=== PATIENT | female | born 1975 | race Caucasian/White ===

== ENCOUNTER 2018-04-01 08:12 | Observation (INO) | payer OTHER, SELFPAY ==
[2018-04-01 08:13] VITALS: BP 123/75; PULSE 85; RESP 16; TEMP 36.6; O2SAT 100; BMI 19.9
[2018-04-01] MEDS: HYDROmorphone 1 MG/ML Syringe IV (08:32)
[2018-04-01] MEDS: 0.9% Normal Saline 1,000 ML 150 ML IV ×3 (08:32→23:16)
[2018-04-01] MEDS: Ondansetron 4 MG/2 ML Vial IV (08:32)
[2018-04-01 08:35] VITALS: BP 107/75; PULSE 83; RESP 16; O2SAT 100
[2018-04-01 08:35] LABS: Absolute Lymphocyte Count 2.38 X10^3/ul (0.83-4.51); Absolute Neutrophil Count 6.4 X10^3/uL (2.0-7.7); Basophil# 0.02 X10^3/uL; Basophil% 0.2 % (0-1); Eosinophil# 0.09 X10^3/uL; Eosinophils% 0.9 % (0-5); Hematocrit 39.8 % (37-47); Hemoglobin 13.4 g/dl (12.0-15.0); Lymphocyte # 2.38 X10^3/ul (4.0); Lymphocyte % 24.4 % (19-41); Mean Corp Hgb Conc 33.7 g/gl (32-36); Mean Corpuscular Hgb 30.2 pg (27.0-32.0); Mean Corpuscular Volume 89.8 fL (81-99); Mean Platelet Vol. 9.1 fl (6.2-12.0); Monocyte# 0.83 X10^3/uL; Monocyte% 8.5 % (0-10); Neutrophil # 6.35 X10^3/uL (2.7-7.7); Neutrophil % 65.1 % (47-70); Platelet Count 245 K/mm3 (150-450); RBC Distribution Width CV 12.8 % (11.6-14.6); RBC Distribution Width SD 41.8 fl (35.1-43.9); Red Blood Count 4.43 M/mm3 (4.2-5.4); White Blood Count 9.8 K/mm3 (4.4-11.0)
[2018-04-01 08:37] LABS: POSITIVE COUNT NO; POSITIVE DIFFERENTIAL NO; POSITIVE MORPHOLOGY NO
--- NOTE | 2018-04-01 08:46 | RAD_ITS ---
STUDY: X-RAY - RIGHT FOOT CLINICAL: Female, 42 years old. Fall from a 10 foot height. TECHNIQUE: 3 view(s) of the foot. COMPARISON: None. FINDINGS: Possible multiple fracture along the dorsal aspect of the tarsonavicular bone. Normal visualized subtalar, talonavicular, calcaneocuboid, tarsal and tarsometatarsal articulations. Normal metatarsi. There is degenerative arthrosis of the metatarsophalangeal joint of the hallux . Normal tibial and fibular sesamoid bones. Normal interphalangeal joint of the great toe. Normal phalanges of the great toe. Normal second through fifth metatarsophalangeal joints. Normal interphalangeal joints and phalanges of the lesser toes. The soft tissue structures are unremarkable. RAD/Foot min 3 Views IMPRESSION: Degenerative changes at the first metatarsophalangeal joint. Findings suggestive of nausea and fracture of the dorsal aspect of the tarsal navicular bone. Electronically Signed: Eric Talavera MD at 9:30 EDT Tel [phone], Service support ,
[2018-04-01 08:52] LABS: ALB/GLOB Ratio 1.3 RATIO (0.9-2.4); AST(SGOT) 23 U/L (15-37); Alanine Aminotransfer ALT/SGPT 11 U/L (13-56); Albumin, Serum 3.8 g/dL (3.2-5.0); Alkaline Phosphatase 51 U/L (45-117); Anion Gap 11 (5-15); BUN 10 mg/dL (7-18); BUN/Creat Ratio 11.7 RATIO (10-20); Chloride 105 mmol/L (98-107); Creatinine, Serum 0.85 mg/dL (0.55-1.02); EST Glomerular Filtration Rate 78 mL/min (>60); Est Glom Filt Rate - Afr Amer 94 mL/min (>60); Estimated Creatinine Clearance 78.67 ml/min; Glucose 114 mg/dL (74-106); Potassium 3.6 mmol/L (3.5-5.1); Protein, Total 6.8 g/dL (6.4-8.2); Sodium Level 139 mmol/L (136-145)
[2018-04-01 08:54] LABS: Pregnancy, Serum, hCG Quali. NEGATIVE Negative (0-9 Nonpreg)
[2018-04-01 09:25] LABS: Lipase 156 U/L (73-393)
--- NOTE | 2018-04-01 09:44 | NURSING ---
DR DANIEL YOUSIF
--- NOTE | 2018-04-01 09:46 | PCM.HP.STD ---
Problem List (1) Back pain Status: Acute (2) Heel pain, bilateral Status: Acute History of Present Illness Date of Admission: 04/01/18 Chief Complaint: back pain and bilateral heel pain The patient is a 42 year old F with no significant past medical history. She was working in the barn and was up a lot on the left when she lost her balance and fell. She landed on her feet and started having severe low back pain which was initially rated at 8 out of 10. She also had severe pain in her heels bilaterally. She denied any dizziness, lightheadedness, palpitations or loss of consciousness. She says she She therefore came into the ED. In the ED, temperature was 98.6 Fahrenheit, blood pressure was 131/87, pulse rate was 77 and respiratory rate was 18. CT of the abdomen done showed compression fracture of L1 and L5. X-ray of the right foot showed questionable fracture of the tarsal navicular bone and x-ray of the left foot showed fracture of the posterior plantar portion of the calcaneus. X-rays of the right tibia and fibula were negative. Labs were essentially unremarkable. She was given IV Dilaudid and Zofran. Orthopedics was called by the ED and recommended that patient be seen by podiatry as for the compression fractures the advocated only pain control. Patient has been admitted to be managed for calcaneal fractures and compression fractures. 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 Lives: With Family Smoking Status: Never smoker Tobacco Use: Non-smoker Alcohol: None Drugs: None - *Family History Maternal History Items: Cancer - breast, Hypertension Review of Systems Constitutional: Denies: Chills, Fever, Weight Change HEENT: Denies: Head Aches, Sinus Congestion, Sinus Drainage Cardiovascular: Denies: Chest Pain, Light Headedness, Orthopnea, Palpitations, Syncope Respiratory: Denies: Cough, Shortness of breath at rest, Shortness of breath upon exertion, Sputum production, Wheezing Gastrointestinal: Denies: Abdominal Pain, Nausea, Vomiting Genitourinary: Denies: Dysuria Musculoskeletal: Reports: Back Pain, Foot Pain. Denies: Joint Pain Skin: Denies: Rash, Wounds Neurological: Denies: Numbness, Tingling, Focal weakness Psychiatric: Denies: Anxiety, Depression, Homicidal Ideations, Suicidal Ideations Hematologic/ Lymphatic: Denies: Easy Bruising, Easy Bleeding VTE Information - Inpt Only VTE Present on Admission: No VTE Mechan Device Prophylaxis: None VTE Pharm Prophylaxis ordered?: Yes Patient Problems: Active and Suspected Problems Back pain (Acute) Heel pain, bilateral (Acute) - Physical Exam General: Alert, Oriented x3, Cooperative, - - moderate distress, crying due to pain HEENT: - - ~ 1cm hematoma over right eyebrow Oral: Moist Mucosa Neck: Supple, No JVD, Negative Carotid Bruits Lungs: Clear to auscultation, Normal air movement, No rhonchi, No wheeze, No rales Cardiovascular: Regular rate, Regular Rhythm, Normal S1, Normal S2, No murmurs Abdomen: Bowel Sounds Present, Soft, Non Tender, Non-Distended, No Hepato-splenomegaly Extremities: No clubbing, No cyanosis, No edema, Capillary Refill Less than 3 Seconds Skin: No rashes, No breakdown Musculoskeletal: - - mild tenderness over lower back on palpation; severe tenderness with movement of foot. RIght foot internally rotated (is chronic). Weak plantarflexion of right foot. Lymphatic: No Cervical, Supraclavicular, or Inguinal Adenopathy Neurological: Cranial nerves II-XII grossly intact, Neuro grossly intact Psych/Mental Status: Appropriate - in severe pain, Alert and oriented to time, place, person, mood and affect Vital Signs Temp Pulse Resp BP Pulse Ox 97.8 F 83 16 107/75 100 04/01/18 08:13 04/01/18 08:35 04/01/18 08:35 04/01/18 08:35 04/01/18 08:35 Oxygen Delivery Method Room Air Weight: 127 lb 6.835 oz Body Mass Index (BMI) 19.9 Laboratory Tests Past 24 Hrs 04/01/18 04/01/18 04/01/18 08:26 08:26 08:26 WBC 9.8 RBC 4.43 Hgb 13.4 Hct 39.8 MCV 89.8 MCH 30.2 MCHC 33.7 RDW 12.8 RDW Differential 41.8 Plt Count 245 MPV 9.1 Immature Gran % (Auto) 0.900 Neut % (Auto) 65.1 Lymph % (Auto) 24.4 [place] % (Auto) 8.5 Eos % (Auto) 0.9 Baso % (Auto) 0.2 Absolute Neuts (auto) 6.4 Absolute Lymphs (auto) 2.38 Total Counted Not Reportable Sodium 139 Potassium 3.6 Chloride 105 Carbon Dioxide 23.0 Anion Gap 11 BUN 10 Creatinine 0.85 Estim Creat Clear Calc 78.67 Est GFR (MDRD) Af Amer 94 Est GFR (MDRD) Non-Af 78 BUN/Creatinine Ratio 11.7 Glucose 114 H Calcium 9.0 Total Bilirubin 0.80 AST 23 ALT 11 L Alkaline Phosphatase 51 Total Protein 6.8 Albumin 3.8 Globulin 3.0 Albumin/Globulin Ratio 1.3 Lipase Serum , Qual NEGATIVE 04/01/18 08:26 WBC RBC Hgb Hct MCV MCH MCHC RDW RDW Differential Plt Count MPV Immature Gran % (Auto) Neut % (Auto) Lymph % (Auto) [place] % (Auto) Eos % (Auto) Baso % (Auto) Absolute Neuts (auto) Absolute Lymphs (auto) Total Counted Sodium Potassium Chloride Carbon Dioxide Anion Gap BUN Creatinine Estim Creat Clear Calc Est GFR (MDRD) Af Amer Est GFR (MDRD) Non-Af BUN/Creatinine Ratio Glucose Calcium Total Bilirubin AST ALT Alkaline Phosphatase Total Protein Albumin Globulin Albumin/Globulin Ratio Lipase 156 Serum , Qual Diagnostic Data Chest X-Ray 04/01/18 08:19 IMPRESSION: Normal x-ray examination of the chest. Electronically Signed: Eric Talavera MD at 9:33 EDT Tel [phone], Service support , Abdomen/Pelvis CT 04/01/18 08:20 IMPRESSION: Nondisplaced compression fracture of the L1 and L5 vertebrae. Electronically Signed: Eric Talavera MD at 9:34 EDT Tel [phone], Service support , Tibia/Fibula X-Ray 04/01/18 08:35 IMPRESSION: Normal x-ray examination of the tibia and fibula. Electronically Signed: Eric Talavera MD at 9:27 EDT Tel [phone], Service support , Foot X-Ray 04/01/18 08:46 IMPRESSION: Degenerative changes at the first metatarsophalangeal joint. Findings suggestive of nausea and fracture of the dorsal aspect of the tarsal navicular bone. Electronically Signed: Eric Talavera MD at 9:30 EDT Tel [phone], Service support , Assessment/Plan All Active Problems Back pain (Acute) Heel pain, bilateral (Acute) -year-old female with no significant past medical history presenting with severe back pain and bilateral heel pain after she fell from a height and landed on her feet. 1. Traumatic Compression fracture of L1 and L5 fell from a height and landed on her feet CT abdomen pelvis showed comprssion fracture of L1 and L5 ED spoke to orthopedics, who advocated medical management of compression fractures will give IV morphine mg q6prn and IV ketorolac for pain IVF NS ~ 150cc/jhr PT/OT consulted will need intensive rehab 2. Left traumatic calcaneal fracture xray of left foot showed fracture of posterior plantar portion of calcaneus pain meds as documented above podiatry consulted. 3. Right tarsal navicular fracture as seen per xray pain meds as documented above DVT prophylaxis: Lovenox CODE STATUS: Full code. Counseled extensively about different types of CODE STATUS. CC and DNR CCA. Patient elects to be full code.Total face to face time-17 mins This note was generated with [employer] dictation software. It may contain incorrect words, spelling, and punctuation that were not noted in checking the note before signing. Code Visit Inpatient E&M: 32400 Init Hosp L3 Procedures: 34965 Advncd Care Plan 30 Min
--- NOTE | 2018-04-01 09:47 | ED.VISSUMM ---
- ER Visit Summary Date of Service: 04/01/18 Chief Complaint: [Fall] History of Present Illness: The patient is a 42 F [presents to the emergency department via EMS after sustaining a fall this morning. Patient states that she was working in a loft of a barn when she lost her balance and she jumped down onto some stall mats. Patient complaining of pain in her feet and her low back. Patient denies striking her head. She denies any chest pain or abdominal pain. She denies any difficulty breathing. Patient rates her pain a 10 out of 10.] Physical Examination: [HEENT-PERRLA, EOMI. Cranial nerves II through XII grossly intact. TMs clear. Mucous membranes moist. No adenopathy. Cardiovascular-regular rate and rhythm without murmur or ectopy Lungs-clear to auscultation, chest wall stable without crepitus or subcu emphysema Abdomen-normoactive bowel sounds, soft, nontender, no rebound or rigidity, no peritoneal signs. Back exam-patient has tenderness over the lumbar spine diffusely. Patient has negative straight leg raises. Deep tendon reflexes are plus 2 out of 4 bilaterally at the patella and Achilles. Extremities-intact ?4, normal range of motion, normal pulses. Patient has tenderness to palpation over bilateral feet. Patient has tenderness over the left calcaneus specifically. Patient has tenderness diffusely over the dorsum of the right foot. No obvious deformities noted. She is neurovascular intact. Test Results: [CBC with differential obtained was normal. Chemistries were normal. LFTs were normal. Lipase was 156. HCG was negative. X-ray of the right foot showed questionable fracture of the tarsal navicular bone dorsal aspect. X-rays of the right tib-fib were normal. X-rays of the left foot obtained showed a fracture of the posterior plantar portion of the calcaneus. CT scan of the abdomen and pelvis showed compression fractures of L1 and L5 otherwise nothing significant.] Emergency Department Course and Treatment: [Patient was medicated with Dilaudid and Zofran. Case discussed with orthopedic surgeon on-call Dr. Valderrama who stated that she recommended patient be referred to podiatry for the foot fractures and the lumbar fractures are just medical management with pain control. I discussed case with hospitalist will evaluate patient for admission] Treatment Plan: [Admit for pain control and podiatry consult.] Disposition: [Admit] Impression: [Lumbar fractures L1 and L5 Left calcaneus fracture Right foot fracture Mechanical fall] This note was generated with [employer] dictation software. It may contain incorrect words, spelling, and punctuation that were not noted in review of the chart prior to signing ED Disposition - Plan for ED Patient: Chief Complaint: Back Referrals: Joel Emanuel DO [Primary Care Provider] -
--- NOTE | 2018-04-01 09:52 | NURSING ---
MED SURG CALCANEAL FX KORAM
[2018-04-01 10:12] LABS: Bacteria 0 SEEN /hpf (None Seen); Mucous, Urine 0 SEEN /hpf (<or=2+); Red Blood Cells-Urine 0 SEEN /hpf (0-5); White Blood Cells 0 SEEN /hpf (0-5)
[2018-04-01 10:15] LABS: Glucose, Dipstick Normal (Normal); Ketone-Dipstick Negative (Negative); Leukocyte Esterase-Dipstick Negative /ul (Negative); Nitrite-Dipstick Negative (Negative); Occult Blood-Urine Negative /ul (Negative); Protein-Dipstick Negative (Negative); Urine Bilirubin Dipstick Negative (Negative); Urine Urobilinogen Normal (Normal)
[2018-04-01 10:17] LABS: Color, Urine Yellow (Yellow); Urine Clarity Clear (Clear)
[2018-04-01 10:22] LABS: Squamous Epithelial Cells - UA 0-5 SEEN /hpf (5-10)
[2018-04-01 10:37] VITALS: BMI 18.3
[2018-04-01 10:57] VITALS: BP 131/87; PULSE 77; RESP 18; TEMP 37; O2SAT 100
[2018-04-01] MEDS: Morphine 2 MG/ML Syringe IV ×3 (12:06→21:16)
[2018-04-01 16:34] VITALS: BP 117/77; PULSE 76; RESP 18; TEMP 36.8; O2SAT 100
--- NOTE | 2018-04-01 19:31 | CON.PCM_ITS ---
Problem List (1) Calcaneus fracture, left Status: Acute Qualifiers: Encounter type: initial encounter Calcaneus location: tuberosity Fracture type: closed Fracture alignment: nondisplaced (2) Osteochondral defect of talus Status: Acute (3) Closed navicular fracture of right foot Status: Acute Qualifiers: Encounter type: initial encounter Fracture alignment: nondisplaced Qualified Code(s): S92.254A - Nondisplaced fracture of navicular [scaphoid] of right foot, initial encounter for closed fracture (4) Right foot pain Status: Acute (5) Left foot pain Status: Acute Reason for Consult Date of Consultation: 04/01/18 Reason for Consultation: Foot pain after fall History of Present Illness: The patient is a 42 year old F was seen bedside this evening for bilateral foot pain. She fell off of a barn loft and had exquisite back and foot pain and presented to the emergency room. She had x-rays obtained. She denies burning tingling numbness. She denies weakness. Her pain is rated as a 7 out of 10 and is sharp in nature. She is unable to bear weight. She denies loss of consciousness. The onset of this injury was earlier today. She complains her right ankle and foot are also swollen. 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 Denies: Chest Pain, Claudication Respiratory: Denies: Shortness of Breath Gastrointestinal: Denies: Nausea, Vomiting Genitourinary: Denies: Dysuria Musculoskeletal: Reports: Back Pain, Foot Pain, Joint Tenderness, Leg Pain Skin: Denies: Skin Changes, Wounds Neurological: Denies: Numbness, Tingling Psychiatric: Denies: Anxiety Hematologic/ Lymphatic: Denies: Easy Bruising, Easy Bleeding Patient Problems: Active and Suspected Problems Back pain (Acute) Heel pain, bilateral (Acute) Calcaneus fracture, left (Acute) Osteochondral defect of talus (Acute) Closed navicular fracture of right foot (Acute) Right foot pain (Acute) Left foot pain (Acute) - Physical Exam General: Alert, Oriented x3, Cooperative HEENT: Atraumatic Extremities: No cyanosis, Capillary Refill Less than 3 Seconds - All digits bilateral foot, Edema - Right ankle and hindfoot edema noted. There is no edema to the left lower extremity., Peripheral Pulses Normal - Palpable DP and PT pulses 2 out of 4 bilateral Skin: - - There is no skin discontinuity, ecchymosis, erythema, streaking, skin tenting bilateral. Her skin turgor is normal and she is warmth noted on touch that is normal Musculoskeletal: No Muscle Wasting, - - Left lower extremity: Pain with left heel compression and not along the Achilles or ankle joint or subtalar joint. There is no pain to the foot or with passive manipulation of the foot or ankle. Right lower externally: There is pain to palpate the navicular, sinus tarsi, and anterior ankle joint. There is no pain to medial or lateral malleolus or proximal fibula. There is pain diffuse palpation to the midfoot and not with passive manipulation of the midfoot or forefoot. Compartments remain soft to bilateral foot ankle and leg Neurological: Sensory exam intact to light touch and pain - Equal and symmetrical to all dermatomes bilateral lower extremities at this time Psych/Mental Status: Normal Affect, Appropriate Vital Signs Temp Pulse Resp BP Pulse Ox 98.2 F 76 18 117/77 100 04/01/18 16:34 04/01/18 16:34 04/01/18 16:34 04/01/18 16:34 04/01/18 16:34 Oxygen Delivery Method Room Air Weight: 52.2 kg Intake and Output for Last 24 Hours 03/30/18 03/31/18 04/01/18 23:59 23:59 23:59 Intake Total 1250 / 1400 Output Total 600 / 600 Balance 650 / 800 Assessment/Plan All Active Problems Back pain (Acute) Heel pain, bilateral (Acute) Calcaneus fracture, left (Acute) Osteochondral defect of talus (Acute) Closed navicular fracture of right foot (Acute) Right foot pain (Acute) Left foot pain (Acute) Right navicular fracture nondisplaced and closed, initial encounter Right talus osteochondral defect nondisplaced, initial encounter Left calcaneus compression posterior tubercle fracture suspected closed and nondisplaced, initial encounter Pain bilateral lower extremities L1 and L5 compression fractures, nondisplaced I reviewed and discussed her case. I reviewed her imaging studies which demonstrated radiolucency cortical interruption of the navicular of the right foot to the medial 35% which did not appear to invade the articular major surface nor did have displacement. There is also radiolucency to the medial talar dome consistent with an osteochondral defect. Other aquino the ankle mortise appears to be intact and well aligned on the right lower extremity. There is also irregular trabecular pattern to the posterior plantar aspect of the left calcaneus without displacement or other sclerosis or cortical interruption noted. I recommend additional ankle x-rays on the right to further evaluate this talus injury. These fracture sites are nondisplaced I recommend conservative care at this time with bilateral immobilization devices, cam walker. Orders will be placed and I advised she remain nonweightbearing to bilateral lower extremities. Recommend wheelchair use and home assistance. Physical and Occupational Therapy will evaluate her while in house to ensure a safe discharge is pursued. It is also noted her case is complicated with her lumbar fractures. I discussed fracture etiology, anticipated healing time and management, and treatment options. She understands risks and complications with this type of injury include continued pain, swelling, delayed or nonhealing , need for surgical intervention or other advanced modalities. She is amenable to proceed with a conservative care at this time. She demonstrates understanding and I answered all of her questions. I also recommend screening her for potential vitamin D deficiency and this test will be ordered while she is in house. Medical management, pain management, DVT prophylaxis per primary team is appreciated. She has to reach out to her nurse friend, Peyton Escobar, at [phone] to review her case. I did call her friend and left her message requesting her call back. I recommend she follow-up at the [facility] within 4 weeks of discharge and a discharge recommendation document will be created. Thank you very much for the consultation. Please not hesitate to call if you have any questions. Trina Mcintosh DPM, FACFAS [facility] [phone]
--- NOTE | 2018-04-01 19:41 | PCM.DC.POD ---
Discharge Activity: May Not Drive, May not drive while taking narcotic pain medications., - - Use wheelchair Weight Bearing Status: No weight bearing - Bilateral Call your doctor if you observe: Shortness of breath, Chest pain, Calf discomfort, Uncontrolled pain Cleanse incision/area with: - Allergies/Adverse Reactions: Allergies No Known Allergies Allergy (Verified 04/01/18 08:37) Medications to take at Discharge NK [NK] 04/01/18 Primary Care Physician: Joel Emanuel DO [Primary Care Provider] - Test Results: Test results from this visit will be discussed in further detail at your follow-up appointment, if applicable. Please Follow Up With: Trina Mcintosh DPM - 3-4 wks; [phone] When: [facility]; [address], [address], [place] [address]
[2018-04-01 21:12] VITALS: BP 113/71; PULSE 81; RESP 16; TEMP 36.7; O2SAT 97
[2018-04-01] MEDS: 0.9% NaCl Peripheral Flush Adult/Peds IV ×2 (21:16→23:16)
[2018-04-01] MEDS: Ketorolac 15 MG/ML Vial IV (23:15)
[2018-04-02 03:12] VITALS: BP 91/50; PULSE 72; RESP 16; TEMP 36.8; O2SAT 98
[2018-04-02] MEDS: 0.9% Normal Saline 1,000 ML 150 ML IV (05:54)
[2018-04-02] MEDS: Acetaminophen 325 MG Tablet 650 MG PO ×3 (08:20→18:20)
[2018-04-02 08:21] VITALS: BP 116/76; PULSE 72; RESP 16; TEMP 36.8; O2SAT 100
--- NOTE | 2018-04-02 09:11 | PCM.PN.HOSP ---
Patient Problems: Active and Suspected Problems Back pain (Acute) Heel pain, bilateral (Acute) Calcaneus fracture, left (Acute) Osteochondral defect of talus (Acute) Closed navicular fracture of right foot (Acute) Right foot pain (Acute) Left foot pain (Acute) Subjective: Patient seen and examined. Pain is much better today. She rates back pain and heel pain at 3 out of 10. She denies any fever or chills, any cough or chest pain, shortness of breath, abdominal pain, any diarrhea vomiting. 12 point review of systems otherwise negative. Labs and vitals reviewed. Vitals/I&O's: Vital Signs Temp Pulse Resp BP Pulse Ox 98.3 F 72 16 116/76 100 04/02/18 08:21 04/02/18 08:21 04/02/18 08:21 04/02/18 08:21 04/02/18 08:21 Oxygen Delivery Method Room Air Weight: 115 lb 1.301 oz Intake and Output for Last 24 Hours 03/31/18 04/01/18 04/02/18 23:59 23:59 23:59 Intake Total 2748 / 2898 980 / 980 Output Total 1800 / 1800 250 / 250 Balance 948 / 1098 730 / 730 General: Alert, Oriented x3, Cooperative, No apparent distress HEENT: Atraumatic, PERRLA, EOMI, Normocephalic Oral: Moist Mucosa Neck: Supple, No JVD, Negative Carotid Bruits Lungs: Clear to auscultation, Normal air movement, No rhonchi, No wheeze, No rales Cardiovascular: Regular rate, Regular Rhythm, Normal S1, Normal S2, No murmurs Abdomen: Bowel Sounds Present, Soft, Non Tender, Non-Distended, No Hepato-splenomegaly Extremities: No clubbing, No cyanosis, No edema, Capillary Refill Less than 3 Seconds Skin: No rashes, No breakdown Musculoskeletal: No Tenderness to Palpation of Joints or Extremities Lymphatic: No Cervical, Supraclavicular, or Inguinal Adenopathy Neurological: Cranial nerves II-XII grossly intact, Motor Exam 5/5 strength throughout Psych/Mental Status: Normal Affect, Appropriate, Alert and oriented to time, place, person, mood and affect Laboratory Results 04/02/18 05:30: Vitamin D 25-Hydroxy Pending Current Medications Acetaminophen (Tylenol) 650 mg PO Q6 LUPILLO Last Admin: 04/02/18 08:20 Dose: 650 mg Enoxaparin Sodium (Lovenox) 40 mg SC DAILY@1000 LUPILLO Ibuprofen (Motrin) 600 mg PO Q6H PRN PRN Reason: PAIN Ketorolac Tromethamine (Toradol) 15 mg IV Q8H PRN PRN PRN Reason: PAIN Stop: 04/06/18 11:09 Last Admin: 04/01/18 23:15 Dose: 15 mg Magnesium Hydroxide (Milk Of Magnesia) 30 ml PO DAILY PRN PRN PRN Reason: Constipation Ondansetron HCl (Zofran) 4 mg IV Q8H PRN PRN PRN Reason: NAUSEA/VOMITING Senna/Docusate Sodium (Senokot-S, Lo-Colace) 1 tablet PO DAILY PRN PRN PRN Reason: CONSTIPATION Sodium Chloride () 5 - 30 ml IV UD PRN PRN Reason: SALINE FLUSH Last Admin: 04/01/18 23:16 Dose: 10 ml Medical Necessity - Tobacco Use Smoking Status: Never smoker Tobacco Use: Non-smoker Assessment/Plan All Active Problems Back pain (Acute) Heel pain, bilateral (Acute) Calcaneus fracture, left (Acute) Osteochondral defect of talus (Acute) Closed navicular fracture of right foot (Acute) Right foot pain (Acute) Left foot pain (Acute) -year-old female with no significant past medical history presenting with severe back pain and bilateral heel pain after she fell from a height and landed on her feet. 1. Traumatic Compression fracture of L1 and L5 pain well controlled now. on IV morphine and ketorolac, per nurse, IV ketorolac helped more than morphine will dc morphine and start PO ibuprofen and tyelenol. IV ketorolac q6prn as needed PT/OT on board; awaiting rec's conservative management per orthopedics vitamin D ordered and pending. 2. Left traumatic calcaneal fracture xray of left foot showed fracture of posterior plantar portion of calcaneus podiatry on board: advocate conservative management for now with bilateral immobilization devices and calm walker. Patient to remain nonweightbearing to bilateral lower extremities and recommend wheelchair use and home assistance. PT OT consulted. Awaiting rec's pain meds as documented above 3. Right tarsal navicular fracture as seen per xray pain meds as documented above DVT prophylaxis: Lovenox Disposition: Patient prefers to be discharged to her friend's home. Friend is a nurse who she states has at home that is handicap equipped and will be able to care for her. This note was generated with [employer] dictation software. It may contain incorrect words, spelling, and punctuation that were not noted in checking the note before signing. Code Visit OBSV E&M: 42198 Subsequent observation care L2
[2018-04-02 09:59] LABS: Vitamin D,25 Hydroxy 15.3 ng/mL (29.95-100.01)
--- NOTE | 2018-04-02 10:17 | CASEMGMT ---
Addendum entered by Kiana Joe 04/02/18 12:09: LEDA received message from Willow with Religion Liaison stating that she met with pt and provided pt with list of DME company/warehouse that if pt needs DME [facility] and get [facility]. Original Note: Addendum entered by Kiana Joe 04/02/18 10:32: LEDA received call from Willow Religion Liaison stating that pt is Religion and pt will get billed for hospital stay and then will get either 25% or 20% deduction and then can get assistance through [employer]. Willow states that she will talk to pt today. Original Note: Social Work Note Pt is listed as self-pay. LEDA placed a call to [facility] and left a message informing on self-pay status and if [facility] is able to see pt today. Kiana Joe HAND CIGAR MAKING SUPERVISOR, PARCEL POST TRUCK DRIVER
[2018-04-02] MEDS: Ibuprofen 600 MG Tablet PO ×2 (10:59→21:34)
[2018-04-02] MEDS: Enoxaparin 40 MG/0.4 ML Syringe SC (10:59)
--- NOTE | 2018-04-02 11:34 | NURSING ---
Spoke with [employer] about pneumatic cam walker boots, they will contact the [place] office and obtain boots for patient.
[2018-04-02 14:30] VITALS: BP 111/78; PULSE 76; RESP 16; TEMP 37.1; O2SAT 100
--- NOTE | 2018-04-02 14:45 | CASEMGMT ---
WAGNER CM Face to Face with patient at this time. Patient states that she is going to be staying at her friends house that is handicap accessible. Therapy provided list of DME she will need at home and patient has resource to obtain equipment. Walking CAM boots were obtained by [employer]. Patient states that she has no further needs or concerns at this time. Disposition Plan: Patient to discharge to friends home with support and follow-up plans in place.
[2018-04-02 21:35] VITALS: BP 111/70; PULSE 70; RESP 16; TEMP 36.5; O2SAT 98
[2018-04-03] MEDS: Acetaminophen 325 MG Tablet 650 MG PO ×3 (00:57→11:10)
[2018-04-03 03:47] VITALS: BP 108/67; PULSE 67; RESP 16; TEMP 36.6; O2SAT 100
[2018-04-03] MEDS: Ibuprofen 600 MG Tablet PO (03:54)
--- NOTE | 2018-04-03 08:52 | CASEMGMT ---
Social Work Note SW received call from Willow [employer] Liaison stating that pt is able to get two of the DME she needs at the warehouse around where she lives at and the third DME pt needs is a 30 inch transfer board and pt will need to pick this up at [facility] and [facility] using [facility]. Willow states that she informed pt of this. Kiana Joe TECHNICAL MGR, NAIL GALVANIZER
[2018-04-03 09:00] VITALS: BP 112/77; PULSE 70; RESP 16; TEMP 36.9; O2SAT 99
--- NOTE | 2018-04-03 09:24 | PCM.DC ---
- Discharge Diagnoses Current Active Problems: Current Active and Chronic Problems Back pain (Acute) Heel pain, bilateral (Acute) Calcaneus fracture, left (Acute) Osteochondral defect of talus (Acute) Closed navicular fracture of right foot (Acute) Right foot pain (Acute) Left foot pain (Acute) You will use the following diet at home:: No restrictions Your food should be the consistency of: Regular Your liquids should be the consistency of: Regular/Thin Discharge Activity: May Not Drive, May not drive while taking narcotic pain medications., - - Use wheelchair Weight Bearing Status: No weight bearing - Bilateral Call your doctor if you observe: Shortness of breath, Chest pain, Calf discomfort, Uncontrolled pain Cleanse incision/area with: - Instructions: Leg or Arm Fractures, Neck or Spine Fractures (Broken Neck or Spine), Back Fracture (Compression Fracture) Allergies/Adverse Reactions: Allergies No Known Allergies Allergy (Verified 04/01/18 08:37) Medications to take at Discharge Acetaminophen [Tylenol Tablet] 650 mg PO Q6 #60 tab 04/03/18 Ergocalciferol [Vitamin D] 50,000 unit PO Q7D #10 cap 04/03/18 Ibuprofen 600 mg PO 4X/DAY PRN PRN #30 tab 04/03/18 Pantoprazole Sodium [Protonix] 20 mg PO DAILY #30 tab 04/03/18 The following prescriptions were given: Acetaminophen [Tylenol Tablet] 650 mg PO Q6 #60 tab Ergocalciferol [Vitamin D] 50,000 unit PO Q7D #10 cap Ibuprofen 600 mg PO 4X/DAY PRN PRN #30 tab PRN Reason: Pain Pantoprazole Sodium [Protonix] 20 mg PO DAILY #30 tab Primary Care Physician: Joel Emanuel DO [Primary Care Provider] - Please follow up with your Primary Care Physician in: one week Test Results: Test results from this visit will be discussed in further detail at your follow-up appointment, if applicable. Please Follow Up With: Trina Mcintosh DPM - 3-4 wks; [phone] When: [facility]; [address], [address], [place] [address] Please Follow Up With: Candy Bateman DO When: 4-6 weeks Proposed Discharge Date: 04/03/18
--- NOTE | 2018-04-03 09:27 | PCM.DC.SUM ---
Discharge Date and Diagnosis - Problem List Patient Problems: Active and Suspected Problems Back pain (Acute) Heel pain, bilateral (Acute) Calcaneus fracture, left (Acute) Osteochondral defect of talus (Acute) Closed navicular fracture of right foot (Acute) Right foot pain (Acute) Left foot pain (Acute) Date of Admission: 04/01/18 Date of Discharge: 04/03/18 - Primary Discharge Diagnosis Active and Suspected Problems Back pain (Acute) Heel pain, bilateral (Acute) Calcaneus fracture, left (Acute) Osteochondral defect of talus (Acute) Closed navicular fracture of right foot (Acute) Right foot pain (Acute) Left foot pain (Acute) Hospital Course and Treatment Imaging Results: Diagnostic Data Chest X-Ray 04/01/18 08:19 IMPRESSION: Normal x-ray examination of the chest. Electronically Signed: Eric Talavera MD at 9:33 EDT Tel [phone], Service support , Abdomen/Pelvis CT 04/01/18 08:20 IMPRESSION: Nondisplaced compression fracture of the L1 and L5 vertebrae. Electronically Signed: Eric Talavera MD at 9:34 EDT Tel [phone], Service support , Tibia/Fibula X-Ray 04/01/18 08:35 IMPRESSION: Normal x-ray examination of the tibia and fibula. Electronically Signed: Eric Talavera MD at 9:27 EDT Tel [phone], Service support , Foot X-Ray 04/01/18 19:48 IMPRESSION: The calcific area noted in the dorsal aspect of the navicular bone is poorly visualized on the oblique projection. Electronically Signed: Epi Tay MD at 21:24 EDT , Service support , Os Calcis X-ray 04/01/18 19:49 IMPRESSION: There is a heterogeneous area of lucency in the posterior aspect of the calcaneus. This may represent a nondisplaced fracture. Electronically Signed: Epi Tay MD at 21:15 EDT , Service support , Ankle X-Ray 04/01/18 21:00 IMPRESSION: Soft tissue swelling around the ankle. There is a calcification overlying the dorsal aspect of the navicular bone. This may be an avulsive fracture fragment. Electronically Signed: Epi Tay MD at 21:13 EDT , Service support , Laboratory Tests 04/01/18 04/01/18 04/01/18 08:26 08:26 08:26 WBC 9.8 RBC 4.43 Hgb 13.4 Hct 39.8 MCV 89.8 MCH 30.2 MCHC 33.7 RDW 12.8 RDW Differential 41.8 Plt Count 245 MPV 9.1 Immature Gran % (Auto) 0.900 Neut % (Auto) 65.1 Lymph % (Auto) 24.4 [place] % (Auto) 8.5 Eos % (Auto) 0.9 Baso % (Auto) 0.2 Absolute Neuts (auto) 6.4 Absolute Lymphs (auto) 2.38 Total Counted Not Reportable Sodium 139 Potassium 3.6 Chloride 105 Carbon Dioxide 23.0 Anion Gap 11 BUN 10 Creatinine 0.85 Estim Creat Clear Calc 78.67 Est GFR (MDRD) Af Amer 94 Est GFR (MDRD) Non-Af 78 BUN/Creatinine Ratio 11.7 Glucose 114 H Calcium 9.0 Total Bilirubin 0.80 AST 23 ALT 11 L Alkaline Phosphatase 51 Total Protein 6.8 Albumin 3.8 Globulin 3.0 Albumin/Globulin Ratio 1.3 Lipase Vitamin D 25-Hydroxy Serum , Qual NEGATIVE Urine Color Urine Clarity Urine pH Ur Specific [place] Urine Protein Urine Glucose (UA) Urine Ketones Urine Occult Blood Urine Nitrite Urine Bilirubin Urine Urobilinogen Ur Leukocyte Esterase Urine RBC Urine WBC Ur Squamous Epith Cells Urine Bacteria Urine Mucus 04/01/18 04/01/18 04/02/18 08:26 10:05 05:30 WBC RBC Hgb Hct MCV MCH MCHC RDW RDW Differential Plt Count MPV Immature Gran % (Auto) Neut % (Auto) Lymph % (Auto) [place] % (Auto) Eos % (Auto) Baso % (Auto) Absolute Neuts (auto) Absolute Lymphs (auto) Total Counted Sodium Potassium Chloride Carbon Dioxide Anion Gap BUN Creatinine Estim Creat Clear Calc Est GFR (MDRD) Af Amer Est GFR (MDRD) Non-Af BUN/Creatinine Ratio Glucose Calcium Total Bilirubin AST ALT Alkaline Phosphatase Total Protein Albumin Globulin Albumin/Globulin Ratio Lipase 156 Vitamin D 25-Hydroxy 15.3 L Serum , Qual Urine Color Yellow Urine Clarity Clear Urine pH 8.0 Ur Specific [place] 1.010 Urine Protein Negative Urine Glucose (UA) Normal Urine Ketones Negative Urine Occult Blood Negative Urine Nitrite Negative Urine Bilirubin Negative Urine Urobilinogen Normal Ur Leukocyte Esterase Negative Urine RBC 0 SEEN Urine WBC 0 SEEN Ur Squamous Epith Cells 0-5 SEEN Urine Bacteria 0 SEEN Urine Mucus 0 SEEN podiatry Operations: None Procedures: None Summary of Care Provided: The patient is a 42 year old F with no significant past medical history was admitted by the ED on 04/01/2018 after she sustained a fall. She was walking up in the bilateral height and lost her balance and fell. She landed on her feet and started having severe low back pain which is rated about 8 out of 10 and also had associated severe pain in her heels bilaterally. She unassisted dizziness, lightheadedness nests, palpitations or loss of consciousness prior to the fall. CT of the abdomen showed compression fracture of L5 and L1 and x-ray of the right foot showed questionable tarsal navicular bone fracture. X-ray of the left foot showed fracture of the posterior plantar portion of the calcaneus. X-rays of the right tibia and fibula were negative. Patient was started on IV Dilaudid and Zofran and orthopedics was consulted. Orthopedics however recommended conservative management for compression fractures. Podiatry was consulted for calcaneal fracture and they also advocated conservative management. Vitamin D level was low at 15.3. She was started on PO Vitamin D [id number] every 7 days. PT/OT was consulted and advocated continued work on [employer]ice equipment use transfer board and balance. Patient remained stable and was discharge home on 04/03/18. She was discharged to her friend's house, as her friend is a nurse, and has home that is adopted for handicapped people. Patient is to be nonweightbearing and is to use pneumatic cam walker boots prescribed by podiatry. She is to use a wheelchair and to use assist transfer device. She is to follow up with her PCP, podiatry and orthopedic surgeon. During admission, she was transitioned to PO acetaminophen and ibuprofen which controlled her pain well. She was given a script for PO vitamin D [id number] q7 days, acetaminophen, ibuprofen and pantoprazole to protect her GI. PT/OT to be continued upon discharge and after she follows up with Podiatry. This is to allow time for fractures to heal. Patient seen and examined prior to discharge. Pain was much more controlled. She denied any fever chills, any cough or chest pain, shortness of breath, any abdominal pain, any diarrhea vomiting. She had developed a right periorbital hematoma which is up was not tender and was not present yesterday. She denied any trauma to her right eye today and thinks it may have been as a consequence of the fall and is now developing. 12 point review of systems otherwise negative. On examination Vitals: Vital Signs Height 5 ft 6.5 in Weight: 115 lb 1.301 oz Weight in Pounds 115.1 lbs Pulse Ox 100 Temperature 98 F Pulse Rate 67 Respiratory Rate 16 Blood Pressure 108/67 Blood Pressure Position Semi-Fowlers General: Alert, Oriented x3, Cooperative, No apparent distress HEENT: Atraumatic, PERRLA, EOMI, Normocephalic Oral: Moist Mucosa Neck: Supple, No JVD, Negative Carotid Bruits Lungs: Clear to auscultation, Normal air movement, No rhonchi, No wheeze, No rales Cardiovascular: Regular rate, Regular Rhythm, Normal S1, Normal S2, No murmurs Abdomen: Bowel Sounds Present, Soft, Non Tender, Non-Distended, No Hepato-splenomegaly Extremities: No clubbing, No cyanosis, No edema, Capillary Refill Less than 3 Seconds Skin: No rashes, No breakdown Musculoskeletal: No Tenderness to Palpation of Joints or Extremities Lymphatic: No Cervical, Supraclavicular, or Inguinal Adenopathy Neurological: Cranial nerves II-XII grossly intact, Motor Exam 5/5 strength throughout Psych/Mental Status: Normal Affect, Appropriate, Alert and oriented to time, place, person, mood and affect Plan as stated above. Patient advised to apply compresses to right periorbital hematoma. [] Discharge Diet: No Restrictions Discharge Activity: May Not Drive, May not drive while taking narcotic pain medications., - - Use wheelchair Weight Bearing Status: No weight bearing - Bilateral Call your doctor if you observe: Shortness of breath, Chest pain, Calf discomfort, Uncontrolled pain Cleanse incision/area with: - Home Medications: Medications to take at Discharge Acetaminophen [Tylenol Tablet] 650 mg PO Q6 #60 tab 04/03/18 Ergocalciferol [Vitamin D] 50,000 unit PO Q7D #10 cap 04/03/18 Ibuprofen 600 mg PO 4X/DAY PRN PRN #30 tab 04/03/18 Pantoprazole Sodium [Protonix] 20 mg PO DAILY #30 tab 04/03/18 Following Prescrptions Were Given to Patient: Acetaminophen [Tylenol Tablet] 650 mg PO Q6 #60 tab Ergocalciferol [Vitamin D] 50,000 unit PO Q7D #10 cap Ibuprofen 600 mg PO 4X/DAY PRN PRN #30 tab PRN Reason: Pain Pantoprazole Sodium [Protonix] 20 mg PO DAILY #30 tab Primary Care Physician: Joel Emanuel DO [Primary Care Provider] - Please follow up with your Primary Care Physician in: one week Please Follow Up With: Trina Mcintosh DPM - 3-4 wks; [phone] When: [facility]; [address] [facility] [facility] [place] [address] Please Follow Up With: Candy Bateman DO When: 4-6 weeks Patient Instructions: Back Fracture (Compression Fracture), Leg or Arm Fractures, Neck or Spine Fractures (Broken Neck or Spine) Disposition: Home Minutes spent on discharge:: 35 Patient Condition:: Stable Medical Necessity - Tobacco Use Smoking Status: Never smoker Tobacco Use: Non-smoker Meaningful Use Info Meaningful Use Diagnoses (Choose all that apply): None applicable Code Visit Inpatient E&M: 87191 Disch Hosp
--- NOTE | 2018-04-03 10:36 | PCM.PROGNOTE ---
Patient Problems: Active and Suspected Problems Back pain (Acute) Heel pain, bilateral (Acute) Calcaneus fracture, left (Acute) Osteochondral defect of talus (Acute) Closed navicular fracture of right foot (Acute) Right foot pain (Acute) Left foot pain (Acute) Subjective: This 42-year-old female was seen bedside for multiple foot fractures. Her pain is better controlled and is rated as a 4 out of 10 today. She denies burning tingling of the lower extremities. She denies calf pain or other illness. She has been working with physical and Occupational Therapy. She did receive her immobilization boots. - Physical Exam General: Alert, Oriented x3, Cooperative Extremities: No cyanosis, Capillary Refill Less than 3 Seconds - All digits bilateral feet, No Calf Tenderness - Negative Amy and Gordon sign bilateral, Edema - Right ankle and rear foot and left lower foot. No fracture blisters or skin tenting are noted, Peripheral Pulses Normal Skin: - - Intact skin bilateral Musculoskeletal: No Muscle Wasting, - - Pain on palpation to fracture sites. The compartments of the feet ankles and legs remain soft on palpation bilateral Neurological: Sensory exam intact to light touch and pain - Equal and symmetrical to bilateral lower extremity dermatomes Psych/Mental Status: Normal Affect, Appropriate Vital Signs Temp Pulse Resp BP Pulse Ox 98.4 F 70 16 112/77 99 04/03/18 09:00 04/03/18 09:00 04/03/18 09:00 04/03/18 09:00 04/03/18 09:00 Oxygen Delivery Method Room Air Weight: 52.2 kg Intake and Output for Last 24 Hours 04/01/18 04/02/18 04/03/18 23:59 23:59 23:59 Intake Total 2748 / 2898 2230 / 2230 600 / 600 Output Total 1800 / 1800 1850 / 1850 Balance 948 / 1098 380 / 380 600 / 600 Medical Necessity - Tobacco Use Smoking Status: Never smoker Tobacco Use: Non-smoker Assessment/Plan All Active Problems Back pain (Acute) Heel pain, bilateral (Acute) Calcaneus fracture, left (Acute) Osteochondral defect of talus (Acute) Closed navicular fracture of right foot (Acute) Right foot pain (Acute) Left foot pain (Acute) Right navicular fracture nondisplaced and closed, initial encounter Right talus osteochondral defect nondisplaced, initial encounter Left calcaneus compression posterior tubercle fracture suspected closed and nondisplaced, initial encounter Pain bilateral lower extremities L1 and L5 compression fractures, nondisplaced I reviewed and discussed her case. I reviewed her additional imaging studies which demonstrated radiolucency cortical interruption of the navicular of the right foot to the medial 35% which did not appear to invade the articular major surface nor did have displacement. There is also radiolucency to the medial talar dome consistent with an osteochondral defect. Other aquino the ankle mortise appears to be intact and well aligned on the right lower extremity. There is also irregular trabecular pattern to the posterior plantar aspect of the left calcaneus without displacement or other sclerosis or cortical interruption noted. These fracture sites are nondisplaced I recommend conservative care at this time with bilateral immobilization devices, cam walker. These were dispensed and she relates she is feels comfortable using these devices. Physical and Occupational Therapy have evaluated the patient and continue to work with her on a safe transition home. Her vitamin D level was low as 15.3. I recommend weekly supplementation with 50,000 units and improved sun exposure. This was discussed and she demonstrates understanding. Medical management, pain management, DVT prophylaxis per primary team is appreciated. It is okay to discharge home from a lower extremity standpoint. I recommend she follows up with me at the [facility] in about 3 weeks. Please not hesitate to call if you have any questions. Trina Mcintosh DPM, FACFAS [facility] [phone]
[2018-04-03 13:10] VITALS: BP 106/65; PULSE 62; RESP 16; TEMP 37; O2SAT 96
== END 2018-04-03 13:26 | disposition home or self-care (01) ==
LOC: ED 08:36 → MS3 10:24
PROVIDERS: Podiatrist; Admitting Provider Student in an Organized Health Care Education/Training Program; Emergency Provider Emergency Medicine; Family Provider Family Medicine; PCP Family Medicine; Visit Provider Student in an Organized Health Care Education/Training Program
DX: S92.002A Unspecified fracture of left calcaneus, initial encounter for closed fracture (principal); W17.89XA Other fall from one level to another, initial encounter; Y93.89 Activity, other specified; Y92.71 Barn as the place of occurrence of the external cause; Y99.9 Unspecified external cause status; S92.254A Nondisplaced fracture of navicular [scaphoid] of right foot, initial encounter for closed fracture; M54.5 Low back pain; S32.059A Unspecified fracture of fifth lumbar vertebra, initial encounter for closed fracture; S32.019A Unspecified fracture of first lumbar vertebra, initial encounter for closed fracture; E55.9 Vitamin D deficiency, unspecified
CPT/HCPCS: 36415; 71045; 73590; 73610; 73620; 73630; 73650; 74177; 80053; 81001; 82306; 83690; 84703; 85025; 96361; 96372; 96374; 96375; 96376; 97110; 97161; 97166; 97802; 99218; 99285; J7030; Q9967; A4216; G0378; J2405

== ENCOUNTER → 2018-05-21 09:08 | Outpatient (CLI) | payer OTHER, SELFPAY | PROVIDERS: Family Provider Family Medicine; PCP Family Medicine; Referring Provider Podiatrist; Visit Provider Podiatrist | DX: E55.9 Vitamin D deficiency, unspecified (principal); S92.009A Unspecified fracture of unspecified calcaneus, initial encounter for closed fracture; S92.253A Displaced fracture of navicular [scaphoid] of unspecified foot, initial encounter for closed fracture; S92.109A Unspecified fracture of unspecified talus, initial encounter for closed fracture | CPT/HCPCS: 36415; 82306 ==